=== PATIENT | male | born 1980 | race Caucasian/White ===

== ENCOUNTER 2021-10-12 10:04 | Emergency (ER) | payer SELFPAY ==
[2021-10-12] VITALS (8 sets, daily range): BP systolic 178–230; BP diastolic 105–130; PULSE 79–95; RESP 15–20; TEMP 36.7–37.1; O2SAT 97–99
--- NOTE | ~2021-10-12 | US_ITS ---
EXAMINATION:US venous doppler LE RT INDICATION:Leg swelling TECHNIQUE: Multiple grayscale, color flow and Doppler images of the right lower extremity deep venous systems were obtained and reviewed. COMPARISON:No prior studies for comparison. FINDINGS: The common femoral, superficial femoral and popliteal veins demonstrate normal respiratory variation, augmentation and compressibility. Color flow is also seen within the posterior tibial, pe roneal, greater saphenous and profunda veins. There are mildly enlarged right inguinal lymph nodes me asuring up to 2.8 cm, likely reactive. IMPRESSION: 1: No lower extremity deep venous thrombosis. Reviewed, dictated and finalized at location A. COUNTER WORKER
--- NOTE | ~2021-10-12 | XR_ITS ---
XR knee RT min 4V DATE: 10/12/2021 11:47 INDICATION: Lateral pain and swelling following fall TECHNIQUE: 4 views COMPARISON: None FINDINGS: There is distention of the suprapatellar bursa consistent with large joint effusion. No fracture or dislocation, radiopaque intra-articular loose body or chondrocalcinosis or joint space narrowing is noted. No periosteal reaction or bone destruction. IMPRESSION: Knee joint effusion Reviewed, dictated and finalized at location B. UME DESIGNER IMPRESSION: Knee joint effusion
--- NOTE | 2021-10-12 11:33 | ECG_ITS ---
Measurements Intervals [place] Rate: 78 P: 13 DE: 197 QRS: 23 QRSD: 93 T: 124 QT: 373 QTc: 427 Interpretive Statements SINUS RHYTHM LEFT VENTRICULAR HYPERTROPHY AND ST-T CHANGE CONSIDER INFERIOR INFARCT, AGE INDETERMINATE ABNORMAL ECG Electronically Signed On 10-12-2021 17:08:52 CONSERVATION POLICY ANALYST by Mike Daniels D.O.
--- NOTE | 2021-10-12 11:59 | PC.NURSE ---
pt in ultrasound at this time.
--- NOTE | 2021-10-12 12:05 | ED.RECABL ---
HPI - Recheck/Abnormal Lab/Rx General Chief Complaint: Recheck/Abnormal Lab/Rx Stated Complaint: high blood pressure Time Seen by Provider: 10/12/21 10:37 Source: patient and RN notes reviewed Mode of arrival: ambulatory Limitations: no limitations History of Present Illness HPI narrative: This is a 41 year old male with history of hypertension who presents for evaluation of high blood pressure. Patient was taken to Urgent care today for evaluation of right knee pain and swelling. He was found to have extremely elevated blood pressure so he was referred to ER. He reports he previously was prescribed lisinopril with HCZT but he has not taken in over 8 years. He also states he does not see a primary care physician in years. He denies headache, blurred vision, chest pain, sob, abdominal pain, back pain or dizziness. His only complaint is his right knee pain. He states that on Saturday he accidentally hit his thigh on car when he was trying to move a large TV. He states he has had mild thigh triplett and knee pain but it has gradually worsened. He states his right leg has been swollen and his knee has been swollen. He has pain with movement. He denies numbness or tingling. Related Data Allergies Allergy/AdvReac Type Severity Reaction Status Date / Time No Known Allergies Allergy Verified 10/12/21 11:01 Review of Systems Review of Systems: All systems reviewed & are unremarkable except as noted in HPI and below PMFSH Past Medical History Medical History (Updated 10/12/21 @ 15:17 by Vonda Owens MD) Hypertension Social History Social History (Updated 10/12/21 @ 12:22 by Vonda Owens MD) Smoking status: Never smoker Exam Const: General: no acute distress and alert Orientation/consciousness: patient oriented x3 HENMT: Head: normocephalic and atraumatic Face and sinus: face symmetric Eyes: EOM: EOMs intact bilaterally Resp: Effort & Inspection: normal respiratory effort and no retractions Auscultation: clear to auscultation bilaterally Cardio: Rate: regular rate Rhythm: regular rhythm Heart sounds: no murmurs GI: GI Palp: Yes Soft to palpation, No Tenderness to palpation present (GI) and No Guarding due to palpation present (GI) Neuro: General: patient oriented x3, moves all extremities and CN's II-XI intact bilaterally Extrem: Other: bilateral pedal pulses, He has swelling to right knee with no erythema or increased warmth. mild right leg swelling. Psych: Mental Status: mental status grossly normal Affect: normal affect Course Reevaluation(s) Reevaluation #1: I Discussed with patient that is important to get blood pressure under control . EKG does show some strain. He has not chest pain or shortness of breath. He denies headache or focal weakness. I Discussed knee and US results. Date: 10/12/21 Time: 15:13 Vital Signs Vital signs: Vital Signs Temperature 98.1 F 10/12/21 10:08 Pulse Rate 95 10/12/21 10:08 Respiratory Rate 18 10/12/21 10:08 Blood Pressure 230/130 H 10/12/21 10:08 Pulse Oximetry 99 10/12/21 10:08 Temperature 98.7 F 10/12/21 10:59 Pulse Rate 86 10/12/21 15:39 Respiratory Rate 20 10/12/21 15:39 Blood Pressure 178/105 H 10/12/21 15:39 Pulse Oximetry 97 10/12/21 15:39 MDM - Recheck/Abnormal Lab/Rx Lab Data Attestation: I reviewed the patient's lab results. Result diagrams: 10/12/21 12:04 10/12/21 12:04 Labs: Lab Results 10/12/21 10/12/21 10/12/21 Range/Units 12:04 12:04 13:43 WBC 9.6 (4.5-10.0) K/mm3 RBC 4.84 (4.6-6.20) M/mm3 Hgb 14.0 (14.0-18.0) g/dL Hct 41.3 L (42.0-52.0) % MCV 85.3 (80-100) fl MCH 28.9 (26-34) pg MCHC 33.9 (32-36) g/dl RDW 13.3 (11.5-14.5) % Plt Count 196 (150-375) k/mm3 MPV 11.8 H (7.4-10.4) fl Immature Gran % (Auto) 0.3 (0-0.5) % Neut % (Auto) 61.0 (45.5-73.1) % Lymph % (Auto) 26.3 (18.3-44.2) % [place]
[2021-10-12 12:09] LABS: Basophils Absolute Auto 0.1 K/mm3 (0.0-0.1); Basophils Percent Auto 0.7 % (0.2-1.2); Eosinophils Absolute Auto 0.1 K/mm3 (0-0.3); Eosinophils Percent Auto 0.9 % (0-4.4); Hematocrit 41.3 % (42.0-52.0); Immature Granulocyte Absolute 0.03 K/mm3 (0.00-0.031); Immature Granulocyte Percent A 0.3 % (0-0.5); Lymphocytes Absolute Auto 2.52 K/mm3 (0.9-3.2); Lymphocytes Percent Auto 26.3 % (18.3-44.2); Mean Corpuscular HGB Conc 33.9 g/dl (32-36); Mean Corpuscular Hemoglobin 28.9 pg (26-34); Mean Corpuscular Volume 85.3 fl (80-100); Mean Platelet Volume 11.8 fl (7.4-10.4); Monocytes Percent Auto 10.8 % (2.6-8.5); Neutrophils Absolute Auto 5.8 K/mm3 (1.3-6.7); Platelet Count Result 196 k/mm3 (150-375); Red Blood Count 4.84 M/mm3 (4.6-6.20); Red Cell Distribution Width 13.3 % (11.5-14.5); White Blood Count 9.6 K/mm3 (4.5-10.0)
[2021-10-12] MEDS: amLODIPine BESYLATE 5 MG TABLET PO (12:09)
[2021-10-12 12:22] LABS: Alanine Aminotransferase 18 U/L (4-50); Albumin Level 4.5 g/dL (3.5-5.1); Alkaline Phosphatase 117 U/L (38-126); Anion Gap 8 mmol/L (8-16); Aspartate Amino Transferase 22 U/L (17-59); Bilirubin,Total 0.7 mg/dL (0.2-1.3); Blood Urea Nitrogen 11 mg/dL (9-20); Calcium 9.5 mg/dL (8.4-10.2); Carbon Dioxide 24 mmol/L (22-30); Chloride 106 mmol/L (98-107); Creatine Kinase 83 U/L (55-170); Estimated CRCL calculation 146 ml/min; Estimated Glomerular Filt Rate > 60; Glucose 89 mg/dL (65-110); Potassium 3.7 mmol/L (3.4-5.0); Sodium 138 mmol/L (137-145)
[2021-10-12] MEDS: hydrALAZINE HCL 20 MG/ML VIAL 10 MG IV PUSH (12:45)
[2021-10-12 13:55] LABS: Add Urine Microscopic? NO; Appearance Urine Clear (Clear); Bilirubin Urine Negative (Negative); Blood Urine Negative (Negative); Color Urine Yellow (Yellow); Glucose Urine UA Negative (Negative); Ketones Urine Negative (Negative); Leukocyte Esterase Ur Negative LEU/UL (Negative); Nitrate Urine Negative (Negative); Protein Urine Negative (Negative); Specific Grav Ur 1.008 (1.001-1.035); Urobilinogen Urine Negative mg/dL (<2.0)
== END 2021-10-12 15:41 | disposition home or self-care (01) ==
PROVIDERS: Emergency Provider General Practice
DX: I10 Essential (primary) hypertension (principal); I51.7 Cardiomegaly; R94.31 Abnormal electrocardiogram [ECG] [EKG]; M25.461 Effusion, right knee
CPT/HCPCS: 36415; 73564; 80053; 81003; 82550; 85025; 93005; 93971; 96374; 99284; A9270; J0360

== ENCOUNTER 2022-03-04 01:36 | Emergency (ER) | payer BC, SELFPAY ==
[2022-03-04] VITALS (18 sets, daily range): BP systolic 197–221; BP diastolic 115–131; PULSE 82–105; RESP 15–23; TEMP 36.2; O2SAT 97–100
--- NOTE | ~2022-03-04 | CT_ITS ---
EXAMINATION: CT abdomen pelvis w con DATE: 03/04/2022 03:52 INDICATION: Right lower quadrant abdominal pain radiating to groin. Nausea. History of kidney stones. TECHNIQUE: Computed tomography (CT) of the abdomen and pelvis was performed without intravenous contr ast. Automated exposure control and iterative reconstruction technique were employed. Exam dose: 799 .72 mGy-cm total exam DLP. COMPARISON: None. FINDINGS: The lung bases are clear of infiltrate or consolidation. Normal heart size. No pericardial or pleural effusion. The liver, gallbladder, bile ducts, spleen, pancreas, pancreatic duct, and adrenal glands and left ki dney are unremarkable. There is perinephric and periureteral stranding on the right and bilaterally prominent right hydroure teronephrosis secondary to a 5.2 x 7 mm distal right ureteral calculus at the S1 level. The urinary bladder is unremarkable. Minimal prostate calcification. Small fat-containing right ingui nal hernia. There is atherosclerotic calcification of the abdominal aorta. No abdominal aortic aneurysm. No intra peritoneal or retroperitoneal or pelvic mass lesion or adenopathy or ascites. Normal appendix. No bowel obstruction, bowel wall thickening, pneumatosis or intraperitoneal free air . Diffuse idiopathic skeletal hyperostosis of the thoracic spine. Mild degenerative change of the lumba r spine. IMPRESSION: 5.2 x 7 mm obstructing right ureteral calculus at S1 level with mildly prominent right h ydroureteronephrosis, perinephric and periureteral stranding Small fat-containing right inguinal hernia Reviewed, dictated and finalized at [facility]. Reviewed, dictated and finalized at location A. IMPRESSION: 5.2 x 7 mm obstructing right ureteral calculus at S1 level with mi ldly prominent right hydroureteronephrosis, perinephric and periureteral strand ing Small fat-containing right inguinal hernia
[2022-03-04 02:55] LABS: Appearance Urine Clear (Clear); Bilirubin Urine Negative (Negative); Blood Urine 2+ (Negative); Color Urine Yellow (Yellow); Glucose Urine UA Negative (Negative); Ketones Urine Negative (Negative); Leukocyte Esterase Ur Negative LEU/UL (Negative); Nitrate Urine Negative (Negative); Protein Urine Negative (Negative); Urobilinogen Urine 0.2 mg/dL (<2.0); pH Urine 6.5 (5.0-9.0)
[2022-03-04 02:57] LABS: Mucus Urine Rare /lpf; RBC Urine 51-75 /hpf (0-2); WBC Urine 0-3 /hpf
[2022-03-04 02:58] LABS: Basophils Absolute Auto 0.1 K/mm3 (0.0-0.1); Basophils Percent Auto 0.6 % (0.2-1.2); Eosinophils Absolute Auto 0.1 K/mm3 (0-0.3); Eosinophils Percent Auto 0.6 % (0-4.4); Hematocrit 41.3 % (42.0-52.0); Hemoglobin 13.8 g/dL (14.0-18.0); Immature Granulocyte Absolute 0.02 K/mm3 (0.00-0.031); Immature Granulocyte Percent A 0.2 % (0-0.5); Lymphocytes Absolute Auto 1.65 K/mm3 (0.9-3.2); Mean Corpuscular HGB Conc 33.4 g/dl (32-36); Mean Corpuscular Hemoglobin 28.3 pg (26-34); Mean Corpuscular Volume 84.6 fl (80-100); Mean Platelet Volume 10.7 fl (7.4-10.4); Monocytes Absolute Auto 0.8 K/mm3 (0.1-0.6); Monocytes Percent Auto 7.6 % (2.6-8.5); Neutrophils Absolute Auto 7.8 K/mm3 (1.3-6.7); Platelet Count Result 223 k/mm3 (150-375); Red Blood Count 4.88 M/mm3 (4.6-6.20); Red Cell Distribution Width 13.7 % (11.5-14.5); White Blood Count 10.3 K/mm3 (4.5-10.0)
[2022-03-04 03:04] LABS: Alanine Aminotransferase 18 U/L (6-50); Albumin Level 4.3 g/dL (3.5-5.1); Alkaline Phosphatase 134 U/L (38-126); Anion Gap 9 mmol/L (8-16); Aspartate Amino Transferase 28 U/L (17-59); Bilirubin,Total < 0.1 mg/dL (0.2-1.3); Blood Urea Nitrogen 18 mg/dL (9-20); Calcium 9.4 mg/dL (8.4-10.2); Carbon Dioxide 25 mmol/L (22-30); Chloride 104 mmol/L (98-107); Estimated CRCL calculation 91 ml/min; Estimated Glomerular Filt Rate > 60; Glucose 135 mg/dL (65-110); Sodium 138 mmol/L (137-145)
[2022-03-04 03:30] LABS: Add Urine Microscopic? YES
--- NOTE | 2022-03-04 03:40 | PC.NURSE ---
Patient taken to CT via w/c.
--- NOTE | 2022-03-04 05:18 | ED.BACK ---
HPI - Back Pain/Injury General Chief Complaint: Abdominal Pain Stated Complaint: Kidney stone? Time Seen by Provider: 03/04/22 02:40 History of Present Illness HPI Narrative: 42-year-old male presenting with right-sided flank pain radiating to the right lower quadrant, no fevers or chills, no burning or pain with urination but has been going more frequently. Mild nausea, no trauma. Related Data Home Medications Medication Instructions Recorded Confirmed lisinopril 10 mg PO DAILY 03/04/22 Allergies Allergy/AdvReac Type Severity Reaction Status Date / Time No Known Allergies Allergy Verified 03/04/22 02:58 Review of Systems Review of Systems: CONST: No fever. HEENT: No sore throat C/V: No chest pain RESP: No cough GI: Reports abdominal pain, nausea : Frequency. M/S: No joint pain. SKIN: No rash. NEURO: [No headache or focal numbness or weakness] PSYCH: [No depression] PMFSH Past Medical History Medical History Hypertension Social History Social History Smoking status: Never smoker Exam Narrative: EXAMINATION OF ORGAN SYSTEMS/BODY AREAS: Constitutional: Vital signs per nursing GENERAL: Appears uncomfortable from pain HEAD: Normal with no signs of head trauma. EYES: EOMI, conjunctiva normal ENT: Hearing grossly intact LUNGS: Nonlabored breathing. HEART: [Regular rate and rhythm] ABD: [Soft], [mildly tender to palpation] RLQ EXT: Normal range of motion SKIN: [No rashes or lesions.] NEURO: [Alert and oriented x 3. No gross focal sensory or strength deficits.] PSYCH: Normal affect Course Course Emergency Course: 42-year-old male presenting with right flank pain radiating to the right lower quadrant, symptoms are concerning for likely renal colic versus pyelonephritis. Urinalysis is ordered. Patient denies any pain at this time. CT scan of the abdomen/pelvis is ordered. Labs are remarkable for: [Hematuria]. CT scan of the abdomen/pelvis is reviewed by myself and interpreted by radiology, stone in right ureter. Patient is feeling well, tolerating p.o., stable for discharge with follow-up with urology. He is already being seen by his primary care doctor to try to get control of his blood pressure, he has no symptoms regarding hypertension at this time and I doubt any hypertensive emergency without any symptoms. Patient is strongly advised to return to the emergency department for any increasing pain not improving with medications, persistent nausea vomiting, fevers or chills or for any other concerns. Patient is comfortable with this plan and was discharged in fair condition. Procedures: Pulse oximetry interpretation - not hypoxic. Review of medical records. DISPOSITION: Discharged home in fair condition. IMPRESSION: Right ureteric stone Vital Signs Vital signs: Vital Signs Temperature 97.1 F L 03/04/22 02:02 Pulse Rate 92 03/04/22 02:02 Respiratory Rate 16 03/04/22 02:02 Blood Pressure 221/131 H 03/04/22 02:02 Pulse Oximetry 100 03/04/22 02:02 Temperature 97.1 F L 03/04/22 02:02 Pulse Rate 96 03/04/22 05:16 Respiratory Rate 16 03/04/22 05:16 Blood Pressure 205/117 H 03/04/22 05:15 Pulse Oximetry 99 03/04/22 05:16 MDM - Back Pain/Injury Lab Data Result diagrams: 03/04/22 02:46 03/04/22 02:46 Labs: Lab Results 03/04/22 03/04/22 03/04/22 Range/Units 02:46 02:46 02:46 WBC 10.3 H (4.5-10.0) K/mm3 RBC 4.88 (4.6-6.20) M/mm3 Hgb 13.8 L (14.0-18.0) g/dL Hct 41.3 L (42.0-52.0) % MCV 84.6 (80-100) fl MCH 28.3 (26-34) pg MCHC 33.4 (32-36) g/dl RDW 13.7 (11.5-14.5) % Plt Count 223 (150-375) k/mm3 MPV 10.7 H (7.4-10.4) fl Immature Gran % (Auto) 0.2 (0-0.5) % Neut % (Auto) 75.0 H (45.5-73.1) % Lymph % (Auto) 16.0 L (18.3-44.2) % [place] % (Auto) 7.6 (2.6-8
== END 2022-03-04 05:45 | disposition home or self-care (01) ==
PROVIDERS: Emergency Provider Emergency Medicine; PCP Internal Medicine
DX: N13.2 Hydronephrosis with renal and ureteral calculous obstruction (principal); I10 Essential (primary) hypertension; K40.90 Unilateral inguinal hernia, without obstruction or gangrene, not specified as recurrent
CPT/HCPCS: 36415; 74177; 80053; 81001; 85025; 99284; Q9967